=== PATIENT | male | born 1930 | race Caucasian/White ===

== ENCOUNTER → 2020-03-13 | Outpatient (CLI) | payer MEDICARE ==
[2016-08-22 18:36] VITALS: BP 142/73
[~2020-03-13] MED LIST: ACET325T21 PO; AMLO5TAB10 PO; ASPI325T8 PO; CALC500T31 PO; DOCU-150 PO; FLUO15CR8 TP; FLUT16SP2 NS; IOHEXOL 300 MG/ML 75 ML VIAL. IV ONE; LISI1TAB20 PO; MULT-245 PO; NADO20TA2 PO; OMEG1CAP16 PO; POTA20TA12 PO; SIMV20TA18 PO; TAMS0.4C97 PO
[2020-03-13 09:37] LABS: CALCIUM 8.4 mg/dL (8.5-10.1); CREATININE 0.8 mg/dL (0.7-1.3); POTASSIUM 3.9 mmol/L (3.5-5.1)
--- NOTE | 2020-03-13 17:38 | RAD ---
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 Instructions: / History: TECHNIQUE: Multi-detector row CT images were acquired from the thoracic inlet through the upper abdomen without the use of IV contrast. Sagittal and coronal images were acquired from the transaxial data. All CT scans performed at this facility utilize dose optimization techniques as appropriate to the exam, including the following: Automated exposure control and adjustment of the mA and/or KV according to patient size (this includes techniques or standardized protocols for targeted exams where dose is indication/reason for exam). COMPARISON: None currently available. FINDINGS: The absence of IV contrast limits evaluation of soft tissue pathology. CARDIOVASCULAR: Surgical changes from previous aortic aneurysm repair are present with the tube graft measuring 3.8 cm in diameter. The aortic root measures 4.8 cm in diameter. 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 It measures 3.5 cm in diameter. Scattered calcifications in the thoracic aorta are also noted. Proximal descending thoracic aorta measures 3.2 cm, mid descending thoracic aorta measures 2.9 cm and distal thoracic aorta measures 3.0 cm. No evidence of an intramural hematoma. MEDIASTINUM & YARELIS: No adenopathy or masses. No fluid collection. LUNGS: Lungs show patchy density in the right upper lobe at the junction between the major and minor fissures measuring 9 mm wide by 7 mm AP. Some respiratory motion artifact degrades detail, especially at the left lower lobe. There is pleural-parenchymal scarring along the major fissure near the diaphragm on the left. PLEURAL SPACE: No pleural effusions or pneumothorax. OSSEOUS & SOFT TISSUE: Bones are osteopenic. Sternotomy incision has healed. No aggressive appearing osseous lesions are seen. Incidental degenerative changes most conspicuous in the included lower thoracic and upper lumbar spine. ABDOMEN: Included upper abdomen shows nonspecific soft tissue stranding in the omental fat in the left upper quadrant and cysts in the left kidney IMPRESSION: Expected postoperative changes from ascending thoracic aortic aneurysm repair with no recurrent aneurysm or other complications noted on noncontrast chest CT. Electronically signed by: Tayla Larson MD (03/13/2020 5:35 PM) [id number]
== END | disposition home or self-care (01) ==
LOC: CT 09:09
PROVIDERS: ATTEND Internal Medicine Interventional Cardiology
DX: I71.2 Thoracic aortic aneurysm, without rupture (principal); I10 Essential (primary) hypertension; N28.1 Cyst of kidney, acquired; J98.4 Other disorders of lung; M81.8 Other osteoporosis without current pathological fracture; M47.815 Spondylosis without myelopathy or radiculopathy, thoracolumbar region; Z98.890 Other specified postprocedural states
CPT/HCPCS: 36415; 71270; 80048; Q9967